=== PATIENT | female | born 1950 | race Caucasian/White ===

== ENCOUNTER 2018-12-14 17:19 | Emergency (ER) | payer MEDICARE ==
[~2018-12-14] VITALS: Ht 157.5 cm; Wt 60.8 kg
[~2018-12-14 17:19] MED LIST: AMI200 PO; ASPI-1153 PO; CEL20 PO; CLOP75TA2 PO; ERGO500020 PO; FOLI-43 PO; ISOS30TA6 PO; LIP40 PO; LISI-209 PO; WARF5TAB2 PO
[2018-12-14 17:31] VITALS: BP_SYST 102
[2018-12-14] MEDS ORDERED: WELSR150 PO (17:58)
[2018-12-14] MEDS ORDERED: LOSA25TA3 PO (17:58)
[2018-12-14] MEDS ORDERED: bisoprolol PO (17:58)
[2018-12-14] MEDS ORDERED: NITSL SL (17:58)
[2018-12-14] MEDS ORDERED: SEVE800T8 PO (17:58)
[2018-12-14] MEDS ORDERED: ALBMDI INH (17:58)
[2018-12-14] MEDS ORDERED: FLUT60LO3 TP (17:58)
[2018-12-14] MEDS ORDERED: LACT10SO7 PO (17:58)
[2018-12-14 18:31] LABS: BASOPHILS % (AUTO) 0.5 % (0.0-2.0); EOSINOPHILS # (AUTO) 0.1 K/uL (0.0-0.4); EOSINOPHILS % (AUTO) 2.1 % (0.0-4.0); HEMATOCRIT 36.7 % (36-48); HEMOGLOBIN 11.8 g/dL (12.0-16.0); LYMPHOCYTES # (AUTO) 1.1 K/uL (1.0-5.5); LYMPHOCYTES % (AUTO) 20.3 % (20.5-51.5); MEAN CORPUSCULAR HEMOGLOBIN 31 pg (27-31); MEAN CORPUSCULAR HGB CONC 32 % (32-36); MEAN CORPUSCULAR VOLUME 97 fL (79.0-98.0); MONOCYTES # (AUTO) 0.4 K/uL (0.0-1.0); MONOCYTES % (AUTO) 7.2 % (1.7-9.3); NEUTROPHILS # (AUTO) 3.8 K/uL (1.8-7.7); NEUTROPHILS % (AUTO) 69.9 % (40.0-70.0); PLATELET COUNT (AUTO) 154 K/uL (130-430); RED BLOOD CELL COUNT(AUTO) 3.79 MIL/uL (4.2-6.2); RED CELL DISTRIBUTION WIDTH 16.5 % (9.0-15.0); WHITE BLOOD COUNT (AUTO) 5.4 K/uL (4.8-10.8)
[2018-12-14 18:34] LABS: CALCIUM 8.7 mg/dL (8.4-11.0); CREATININE 1.64 mg/dL (0.55-1.30); POTASSIUM 3.6 mmol/L (3.5-5.1)
[2018-12-14 18:35] LABS: INR 2.1 (0.8-1.2); PROTHROMBIN TIME 20.6 SECS (9.5-12.5)
[2018-12-14 18:42] LABS: ALBUMIN 3.2 g/dL (3.4-4.8); TOTAL BILIRUBIN 0.5 mg/dL (0.0-1.0)
[2018-12-14] MEDS ORDERED: INSULIN REGULAR, HUMAN 10 UNITS/0.1 ML INJ IVP ONE (20:30)
[2018-12-14 21:22] LABS: HEMATOCRIT 34.6 % (36-48); HEMOGLOBIN 11.2 g/dL (12.0-16.0); MEAN CORPUSCULAR VOLUME 97 fL (79.0-98.0); RED BLOOD CELL COUNT(AUTO) 3.59 MIL/uL (4.2-6.2); WHITE BLOOD COUNT (AUTO) 4.7 K/uL (4.8-10.8)
[2018-12-14 21:23] LABS: BASOPHILS % (AUTO) 0.9 % (0.0-2.0); EOSINOPHILS # (AUTO) 0.1 K/uL (0.0-0.4); EOSINOPHILS % (AUTO) 1.1 % (0.0-4.0); LYMPHOCYTES # (AUTO) 0.6 K/uL (1.0-5.5); LYMPHOCYTES % (AUTO) 13.2 % (20.5-51.5); MEAN CORPUSCULAR HEMOGLOBIN 31 pg (27-31); MEAN CORPUSCULAR HGB CONC 33 % (32-36); MONOCYTES # (AUTO) 0.2 K/uL (0.0-1.0); MONOCYTES % (AUTO) 4.9 % (1.7-9.3); NEUTROPHILS # (AUTO) 3.8 K/uL (1.8-7.7); NEUTROPHILS % (AUTO) 79.9 % (40.0-70.0); PLATELET COUNT (AUTO) 141 K/uL (130-430); RED CELL DISTRIBUTION WIDTH 17.1 % (9.0-15.0)
[2018-12-14 21:28] LABS: ANION GAP 3 (5-15); CALCIUM 8.3 mg/dL (8.4-11.0); CHLORIDE 104 mmol/L (98-107); CREATININE 1.81 mg/dL (0.55-1.30); GLUCOSE 124 mg/dL (70-99); POTASSIUM 3.4 mmol/L (3.5-5.1); SODIUM SERUM 142 mmol/L (136-145); UREA NITROGEN, BLOOD 18 mg/dL (8-21)
[2018-12-14 21:31] LABS: GFR AFRICAN AMERICAN 36 mL/min (>90); INR 2.3 (0.8-1.2); PROTHROMBIN TIME 22.4 SECS (9.5-12.5)
[2018-12-14 21:36] LABS: ALANINE AMINOTRANSFERASE 29 U/L (12-78); ASPARTATE AMINOTRANSFERASE 27 U/L (10-37); TOTAL BILIRUBIN 0.3 mg/dL (0.0-1.0)
[2018-12-14 22:00] LABS: ACETONE, SERUM NEGATIVE (NEGATIVE)
[2018-12-14] MEDS ORDERED: ASPIRIN 81 MG TABLET(ECOTRIN) PO ONE (22:00)
[2018-12-14] MEDS ORDERED: DEXTROSE 50% JECT 50 ML DISP.SYRIN IVP ONE (22:30)
[2018-12-15 00:10] VITALS: BP_SYST 131
== END 2018-12-15 00:10 | disposition short-term general hospital (02) ==
LOC: SED 17:19
DX: E87.70 Fluid overload, unspecified (principal); R79.89 Other specified abnormal findings of blood chemistry; I12.0 Hypertensive chronic kidney disease with stage 5 chronic kidney disease or end stage renal disease; E11.22 Type 2 diabetes mellitus with diabetic chronic kidney disease; N18.6 End stage renal disease; I25.2 Old myocardial infarction; Z88.0 Allergy status to penicillin; Z88.1 Allergy status to other antibiotic agents; Z88.5 Allergy status to narcotic agent; Z88.6 Allergy status to analgesic agent; Z79.82 Long term (current) use of aspirin; Z79.899 Other long term (current) drug therapy
CPT/HCPCS: 36415; 71045; 80053; 82009; 82962; 83605; 83690; 84484; 85025; 85610; 85730; 87040; 96365; 96375; 99285; J1815; J1956